=== PATIENT | female | born 2000 | race Caucasian/White ===

== ENCOUNTER 2023-03-05 08:10 | Emergency (ER) | payer BC ==
[~2023-03-05] VITALS: Ht 172.7 cm; Wt 82.0 kg
[2023-03-05 08:11] VITALS: O2SAT 97
[2023-03-05] MEDS ORDERED: SODIUM CHLORIDE 0.9% 1,000 ML IV ONE (08:30)
[2023-03-05 09:06] LABS: BASOPHILS % 0.3 % (0.0-2.0); EOSINOPHILS % 0.7 % (0.0-5.0); HEMATOCRIT. 40.6 % (36.0-48.0); HEMOGLOBIN. 13.5 g/dL (12.0-16.0); LYMPHOCYTES % 16.2 % (20.0-50.0); MEAN CORPUSCULAR HEMOGLOBIN 28.5 pg (28.0-32.0); MEAN CORPUSCULAR HGB CONC 33.2 g/dL (31.0-37.0); MEAN PLATELET VOLUME 9.6 fl (7.4-10.4); MONOCYTES % 6.8 % (2.0-8.0); PLATELET 328 x1000/uL (130-400); RED BLOOD CELL COUNT 4.72 mill/uL (4.2-5.4); RED CELL DISTRIBUTION WIDTH 13.3 % (11.6-14.6); WHITE BLOOD COUNT 11.3 x1000/uL (4.5-11.0)
[2023-03-05 09:13] LABS: DIFFERENTIAL COMMENT 1
[2023-03-05 10:08] LABS: CHLORIDE 108 mEq/L (98-107); INDEX HEMOLYSI 1 (1-3); INDEX ICTERIC 1 (1-4); INDEX LIPEMIC 1 (1-3); POTASSIUM 3.3 mEq/L (3.5-5.1); SODIUM 137 mEq/L (136-145)
[2023-03-05 10:30] LABS: ALANINE AMINOTRANSFERASE 29 IU/L (13-61); ALBUMIN 3.7 g/dL (3.4-5.0); ASPARTATE AMINOTRANSFERASE 16 IU/L (15-37); B-HCG QUANTITATIVE < 1 mIU/mL (<3); BILIRUBIN TOTAL 0.5 mg/dL (0.1-1.0); CALCIUM 9.2 mg/dL (8.5-10.1); CARBON DIOXIDE 21 mEq/L (21-32); CREATININE 0.6 mg/dL (0.6-1.3); GLUCOSE 116 mg/dL (70-105); PROTEIN TOTAL 7.7 g/dL (6.0-8.3); UREA NITROGEN BLOOD 5 mg/dL (7-21)
[2023-03-05] MEDS ORDERED: IBUP-2028 PO (10:47)
[2023-03-05 11:22] VITALS: BP 122/82; PULSE 93; RESP 16; TEMP 97.5
== END 2023-03-05 11:36 | disposition home or self-care (01) ==
LOC: ER 08:10
DX: N93.8 Other specified abnormal uterine and vaginal bleeding (principal)
CPT/HCPCS: 80053; 84702; 85025; 86850; 86900; 86901; 36415; 76830; 76856; 93005; 99285; J7030; Z7610 ×2